=== PATIENT | male | born 2000 | race Caucasian/White ===

== ENCOUNTER 2021-08-25 03:39 | Emergency (ER) | payer OTHER ==
[2021-08-25 03:51] VITALS: BP 139/83; PULSE 84; TEMP 98.9; BMI 27.2
[2021-08-25] MEDS ORDERED: FAMOTIDINE 20 MG/50 ML IVPB 20 MG/50 ML MG IVPB ONE (04:05)
[2021-08-25] MEDS ORDERED: ACETAMINOPHEN 1000 MG/100 ML BAG IVPB ONE (04:05)
[2021-08-25] MEDS ORDERED: LACTATED RINGERS SOLUTION 1000 ML INFUS.BAG IV ONE (04:05)
== END 2021-08-25 05:28 | disposition left against medical advice (07) ==
LOC: JER 03:39
DX: R10.30 Lower abdominal pain, unspecified (principal)
CPT/HCPCS: 99282-25